=== PATIENT | female | born 1970 | race Caucasian/White ===

== ENCOUNTER → 2023-03-27 12:30 | Outpatient (CLI) | payer OTHER, MEDICAID, SELFPAY ==
--- NOTE | 2023-03-27 12:32 | DI.ECHO.S_ITS ---
[facility]---------+ [facility] +---------+ : : [address] : [address] [address] : : : : [id number] : : : : Phone: [phone]+ Echocardiogram Report + + :Name: KITTY SIMMS Study Date: 03/27/2023 Height: 68 in : :[facility] ReadingLocation: Weight: 300 lb : : Gender: Female BSA: 2.4 m2 : :: 1970 Age: 52 yrs BP: 161/97 mmHg: :Reason For Study: DYSPNEA, PULMONARY HYPERTENSION : :Ordering Physician: LILIAM, : :CORAL Performed By: Fawn Oconnor : :Referring: CORAL RICKETTS : + + Interpretation Summary Technically difficult study. The left ventricle is normal in size and wall thickness. The ejection fraction is estimated to be 60-65%. No valvular abnormality. Pulmonary artery pressures cannot be estimated because of the lack of a measurable TR jet velocity. Procedure: A two-dimensional transthoracic echocardiogram with color flow and Doppler was performed. The study quality was technically difficult. There is no prior echocardiogram noted for this patient. The patient was in sinus rhythm with heart rates between 67-88 bpm during the exam. Left Ventricle: The left ventricle is normal in size and wall thickness. The ejection fraction is estimated to be 60-65%. There are no focal wall motion abnormalities. Right Ventricle: The right ventricle is normal in size and function. Atria: The left atrial size is normal. Right atrial size is normal. There is no Doppler evidence for an interatrial shunt. Mitral Valve: The mitral valve is normal in structure and function. There is trace mitral regurgitation. Aortic Valve: The aortic valve is not well visualized. The aortic valve is grossly normal. The aortic valve opens well. There is no aortic valve stenosis. No aortic regurgitation is present. Tricuspid Valve: The tricuspid valve is normal in structure and function. There is a trace or physiologic amount of tricuspid regurgitation. Pulmonary artery pressures cannot be estimated because of the lack of a measurable TR jet velocity. Pulmonic Valve: The pulmonic valve is not well visualized. There is no pulmonic valvular regurgitation. Great Vessels: The aortic root is normal size. The dimensions of the ascending aorta are normal. The inferior vena cava was not well visualized. Pericardium/ Pleura There is no pericardial effusion. There is no pleural effusion. MMode/2D Measurements & Calculations LVIDd: 4.8 cm LVOT diam: 2.1 cm LVIDs: 3.1 cm Ao root diam: 3.6 cm FS: 36.3 % asc Aorta Diam: 3.2 cm EPSS: 0.55 cm Ao Arch Diam (Prox Trans): 3.3 cm IVSd: 0.96 cm LVPWd: 1.1 cm LV christiansen. diameter/BSA (cm/m^2): 2.0 LV sys. diameter/BSA (cm/m^2): 1.3 LA A2 area: 21.9 cm2 RA long axis: 4.4 cm LA A4 area: 16.2 cm2 RA area: 12.4 cm2 LA length (vol): 4.9 cm RA vol: 29.4 ml LA vol: 61.2 ml RA : 12.1 ml/m2 LA vol index: 25.2 ml/m2 RVDd major: 8.4 cm RVD1 (basal): 3.2 cm RVD2 (mid): 2.6 cm TAPSE: 3.1 cm Doppler Measurements & Calculations Ao V2 max: 162.5 cm/sec LVOT Max Darrell: 105.5 cm/sec Ao V2 mean: 113.5 cm/sec LV V1 max P.5 mmHg Ao max P.6 mmHg LV V1 VTI: 24.6 cm Ao mean P.7 mmHg MAYRA(I,D): 2.4 cm2 Ao V2 VTI: 36.3 cm MAYRA(V,D): 2.3 cm2 sev ratio: 0.68 MAYRA indexed to BSA (cm^2/m^2): 1.0 MV E max darrell: 104.9 cm/sec PA V2 max: 96.0 cm/sec MV A max darrell: 85.5 cm/sec PA V2 mean: 71.3 cm/sec MV E/A: 1.2 PA mean P.2 mmHg Med Peak E' Darrell: 7.8 cm/sec PA pr(Accel): 41.3 mmHg E/E' med: 13.5 Lat Peak E' Darrell: 8.9 cm/sec E/E' lat: 11.8 E/e' average: 12.7 MV dec time: 0.23 sec SV([facility]): 88.3 ml Electronically signed by: Adan Paulson on Reading Physician:03/27/2023 06:26 PM
== END ==
PROVIDERS: Referring Provider Internal Medicine Sleep Medicine; Visit Provider Specialist
DX: R06.00 Dyspnea, unspecified (principal)
CPT/HCPCS: 93306

== ENCOUNTER → 2023-07-17 14:10 | Outpatient (CLI) | payer OTHER, MEDICAID, SELFPAY ==
[2023-07-22 13:58] LABS: Alder IgE <0.10 kU/L (Class 0); Alternaria alternata IgE <0.10 kU/L (Class 0); Aspergillus fumigatus IgE <0.10 kU/L (Class 0); Box Elder IgE <0.10 kU/L (Class 0); Cat Dander IgE <0.10 kU/L (Class 0); Cladosporium herbarum IgE <0.10 kU/L (Class 0); Cockroach IgE <0.10 kU/L (Class 0); Cottonwood IgE <0.10 kU/L (Class 0); D farinae IgE 0.13 kU/L (Class 0/I); D pteronyssinus IgE 0.16 kU/L (Class 0/I); Dog Dander IgE <0.10 kU/L (Class 0); Elm Tree IgE <0.10 kU/L (Class 0); IgE Mugwort <0.10 kU/L (Class 0); IgE Thistle,Russian <0.10 kU/L (Class 0); Immunoglobulin E 321 IU/mL (6-495); Mountain Cedar IgE <0.10 kU/L (Class 0); Mouse Urine Proteins IgE <0.10 kU/L (Class 0); Oak Tree IgE <0.10 kU/L (Class 0); Penicillium chrysogen IgE <0.10 kU/L (Class 0); Pigweed, Common IgE <0.10 kU/L (Class 0); Sheep Sorrel IgE <0.10 kU/L (Class 0); Silver Birch IgE <0.10 kU/L (Class 0); Timothy Grass IgE <0.10 kU/L (Class 0)
== END ==
PROVIDERS: Referring Provider Internal Medicine Critical Care Medicine; Visit Provider Internal Medicine Critical Care Medicine
DX: R05.3 Chronic cough (principal); R06.09 Other forms of dyspnea; G47.33 Obstructive sleep apnea (adult) (pediatric); E66.01 Morbid (severe) obesity due to excess calories; Z68.42 Body mass index [BMI] 45.0-49.9, adult
CPT/HCPCS: 36415; 82785; 86003; 99215